=== PATIENT | male | born 1960 | race Caucasian/White ===

== ENCOUNTER 2021-11-26 04:57 | Emergency (ER) | payer BC, SELFPAY ==
[2021-11-26 05:02] VITALS: BP 153/100; PULSE 86; RESP 18; TEMP 36.2; O2SAT 100
--- NOTE | 2021-11-26 06:37 | ED.GENADULT ---
HPI - General Adult General Chief complaint: Unspecified Stated complaint: congestion, something feels stuck in throat Time Seen by Provider: 11/26/21 05:54 History of Present Illness HPI narrative: 61-year-old male presented to the emergency department for evaluation of sore throat and a foreign body sensation. Patient states he woke up after snoring and had the sensation. Patient states that sensation improved when he sat up but then worsened again when he laid back down. Related Data Allergies Allergy/AdvReac Type Severity Reaction Status Date / Time nkda Allergy Mild Other Uncoded 11/26/21 05:07 Review of Systems Review of Systems: CONSTITUTIONAL: Denies fever, chills, or sweats. EYES: Denies visual changes, redness, or discharge. ENT: See HPI CARDIOVASCULAR: Denies chest pain, palpitations, or edema. RESPIRATORY: Denies cough or dyspnea. GASTROINTESTINAL: Denies abdominal pain, nausea, vomiting, or diarrhea. GENITOURINARY: Denies dysuria or hematuria. SKIN: Denies rash or itching. MUSCULOSKELETAL: Denies back pain, joint pain, or myalgia. NEUROLOGIC: Denies headache, numbness, or weakness. Exam Narrative: APPEARANCE: Well appearing, no pain, no distress, well-nourished. HEAD: normocephalic, atraumatic. EYES: PERRLA/EOMI, conjunctivae clear. NOSE: Normal no drainage EARS:TMS clear with good light reflex. THROAT: Pharynx clear, no exudate. Uvular hydrops NECK: Supple. No adenopathy, no masses. RESPIRATORY: Airway patent, respirations nonlabored. Clear to auscultation bilaterally, no rales, rhonchi, wheezing. CARDIOVASCULAR: Regular rate and rhythm without murmurs rubs or gallops. ABDOMINAL: Soft, nontender, nondistended, normal bowel sounds MUSCULOSKELETAL: Moves all extremities. Strength/ROM intact, No edema, No calf tenderness. NEURO: Alert. Cranial nerves II through XII intact. Grossly intact SKIN: Warm, dry. Normal Color Course Course Emergency Course: Patient feels that her symptoms are improving. Patient was laid down and had no sensation of airway obstruction. Patient does still have some uvular hydrops/uvular edema but no evidence of obstruction. Patient has no stridor on exam. Patient was encouraged to take anti-inflammatories and to follow-up with his primary care physician for a sleep apnea study due to his snoring. Both patient and family were comfortable with the plan for discharge and close follow-up. All questions concerns were addressed. Vital Signs Vital signs: Vital Signs Temperature 97.1 F L 11/26/21 05:02 Pulse Rate 86 11/26/21 05:02 Respiratory Rate 18 11/26/21 05:02 Blood Pressure 153/100 H 11/26/21 05:02 Pulse Oximetry 100 11/26/21 05:02 Oxygen Delivery Room Air 11/26/21 05:02 Temperature 97.1 F L 11/26/21 05:02 Pulse Rate 69 11/26/21 06:50 Respiratory Rate 18 11/26/21 06:50 Blood Pressure 137/95 H 11/26/21 06:50 Pulse Oximetry 97 11/26/21 06:50 Oxygen Delivery Room Air 11/26/21 05:02 Medical Decision Making Vital Signs Vital Signs: Vital Signs Temperature 97.1 F L 11/26/21 05:02 Pulse Rate 86 11/26/21 05:02 Respiratory Rate 18 11/26/21 05:02 Blood Pressure 153/100 H 11/26/21 05:02 Pulse Oximetry 100 11/26/21 05:02 Oxygen Delivery Room Air 11/26/21 05:02 Temperature 97.1 F L 11/26/21 05:02 Pulse Rate 69 11/26/21 06:50 Respiratory Rate 18 11/26/21 06:50 Blood Pressure 137/95 H 11/26/21 06:50 Pulse Oximetry 97 11/26/21 06:50 Oxygen Delivery Room Air 11/26/21 05:02 Discharge Plan Discharge Clinical Impression: Uvular swelling Patient Disposition: Home, Self-Care Condition: Stable Instructions: Antibiotic Form Additional Instructions: Anti-inflammatories as directed. Have close follow-up with your primary care physician. Primary care physician may want to order a sleep study. If you have any worsening symptoms then please call or return to the emergency department. Follow
[2021-11-26 06:50] VITALS: BP 137/95; PULSE 69; RESP 18; O2SAT 97
== END 2021-11-26 06:52 | disposition home or self-care (01) ==
PROVIDERS: Emergency Provider Emergency Medicine; PCP Family Medicine Adolescent Medicine
DX: K13.79 Other lesions of oral mucosa (principal)
CPT/HCPCS: 99281

== ENCOUNTER 2023-08-30 01:59 | Day surgery (SDC) | payer BC, SELFPAY ==
[2023-08-19 14:44] VITALS: BMI 31.1
--- NOTE | 2023-08-26 09:16 | SUR.PREOP ---
Patient called regarding upcoming procedure. Reviewed preop instructions, appointment times, and procedure prep.
[2023-08-30 12:36] VITALS: BP 124/78; PULSE 71; RESP 16; TEMP 36.3; O2SAT 98
--- NOTE | 2023-08-30 12:38 | P.PNAN_ITS ---
Anes - Initial Pre Proc Eval Procedure: Operation Date: 08/30/23 13:00 Proposed Procedures p Screening Colonoscopy - Jeronimo Varner MD Date/Time: 08/30/23 12:38 Surgeon: Jeronimo Varner MD Pre Op Diagnosis: neoplasm screening Patient Data Age: 63 Gender: M Height: 1.88 m Weight: 110 kg Allergies Allergy/AdvReac Type Severity Reaction Status Date / Time No Known Allergies Allergy Verified 08/30/23 12:34 Home Medications Medication Instructions Recorded Confirmed Type atorvastatin 20 mg tablet 20 mg PO DAILY #90 tabs 07/12/23 08/30/23 Rx Patient hx anesthesia problems: none Family hx anesthesia problems: none Results Review: All pre-operative results and documents have been reviewed as part of the pre- operative evaluation. 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 Informed Consent: The patient's anesthetic plan and its attendant risks and benefits were discussed with the patient/family/POA. Questions were solicited and answers provided to the satisfaction of the patient/family/POA.
[2023-08-30] MEDS: LACTATED RINGERS 1,000 ML 150 ML IV CONT (12:47)
--- NOTE | 2023-08-30 12:56 | P.HP_ITS ---
History of Present Illness History of Present Illness Consent: Risks, benefits, and alternatives have been discussed and questions answered. Patient agrees to proceed with procedure. 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, 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 Gender identity (if verbalized by the patient): Male Spiritual care concerns: No Meds Home Medications and Allergies Home Medications Medication Instructions Recorded Confirmed Type atorvastatin 20 mg tablet 20 mg PO DAILY #90 tabs 07/12/23 08/30/23 Rx Allergies Allergy/AdvReac Type Severity Reaction Status Date / Time No Known Allergies Allergy Verified 08/30/23 12:34 Vital Signs Vital Signs - 24 hr 08/30/23 12:36 Temperature 97.3 F L Pulse Rate 71 Respiratory Rate 16 Blood Pressure 124/78 Pulse Oximetry 98 Oxygen Delivery Room Air Exam Const: General: comfortable and no acute distress HENMT: Face/Nose/Sinus: Normal nares present Eyes: General: appearance normal, both eyes and all related structures Neck: Neck: no JVD Resp: Auscultation: clear to auscultation bilaterally Cardio: Rate: regular rate Rhythm: regular rhythm GI: Inspection: non-distended GI Palp: Yes Soft to palpation Skin: General skin exam: normal color Neuro: General: gait normal Speech: normal speech Extrem: General: normal to inspection Psych: Mental Status: mental status grossly normal Assessment and Plan Assessment and plan (1) Colon cancer screening: Code(s): Z12.11 - Encounter for screening for malignant neoplasm of colon Status: Acute Assessment and Plan: colonoscopy
[2023-08-30 13:16] VITALS: BP 100/67; PULSE 86; RESP 19; O2SAT 97
[2023-08-30 13:26] VITALS: BP 117/78; PULSE 95; RESP 23; O2SAT 98
[2023-08-30 13:36] VITALS: BP 105/76; PULSE 97; RESP 12; O2SAT 98
== END 2023-08-30 13:48 | disposition home or self-care (01) ==
PROVIDERS: PCP Family Medicine Adolescent Medicine; Visit Provider Internal Medicine Gastroenterology
PROC: 0DJD8ZZ Inspection of Lower Intestinal Tract, Via Natural or Artificial Opening Endoscopic (ICD-10-PCS; CPT 45378; principal; 2023-08-30 13:00)
DX: Z12.11 Encounter for screening for malignant neoplasm of colon (principal); D12.4 Benign neoplasm of descending colon; K63.5 Polyp of colon; K64.8 Other hemorrhoids; E66.9 Obesity, unspecified; Z68.30 Body mass index [BMI] 30.0-30.9, adult; Z82.49 Family history of ischemic heart disease and other diseases of the circulatory system
CPT/HCPCS: 45385; 45380; 88305; J2704; J7120

== ENCOUNTER 2025-04-10 14:18 | Outpatient (CLI) | payer BC, SELFPAY | END 2025-04-10 14:19 | disposition home or self-care (01) | LOC: ANHAUDIO 14:18 | PROVIDERS: PCP Family Medicine Adolescent Medicine; Visit Provider Family Medicine Adolescent Medicine | DX: H90.3 Sensorineural hearing loss, bilateral (principal) | CPT/HCPCS: 92557; 92567 ==